=== PATIENT | female | born 1975 | race Caucasian/White ===

== ENCOUNTER 2018-11-29 12:06 | Outpatient (CLI) | payer BC ==
--- NOTE | 2018-11-29 13:31 | RAD ---
THREE VIWS LUMBAR SPINE: DATE: 11/29/2018. HISTORY: Dorsalgia. Low back pain with radiation of pain down into both legs on occasion. COMPARISON: None available. FINDINGS: There are 5 [id number] lumbar-type vertebral bodies. The vertebral body heights are within norm al limits. There is narrowing of the L5-S1 intervertebral disk space. No fracture or subluxation is seen involving the lumbar spine. There is a small to moderate amount of retained fecal material seen throughout the colon. Radiopaque sutures overlie the right lower quadrant. IMPRESSION: 1. Mild degenerative changes at the lumbosacral junction. 2. No fracture or subluxation involving the lumbar spine. 3. Evidence of constipation. POS: KELI
== END 2018-11-29 12:07 | disposition home or self-care (01) ==
LOC: BICRAD 12:06
PROVIDERS: ATTEND Internal Medicine Rheumatology
DX: M54.89 Other dorsalgia (principal); M47.817 Spondylosis without myelopathy or radiculopathy, lumbosacral region; K59.00 Constipation, unspecified
CPT/HCPCS: 72100

== ENCOUNTER 2019-02-06 15:33 | Outpatient (CLI) | payer BC ==
--- NOTE | 2019-02-06 15:51 | RAD ---
Chest 2 views HISTORY: Arthritis. Chest pain. FINDINGS: No comparison. Cardiac silhouette and pulmonary vasculature are unremarkable. Mediastinum i s midline. No confluent airspace consolidation, pneumothorax, or pleural fluid are apparent. IMPRESSION: No active cardiopulmonary abnormalities are demonstrated.
== END 2019-02-06 15:34 | disposition home or self-care (01) ==
LOC: BICRAD 15:33
PROVIDERS: ATTEND Internal Medicine Rheumatology
DX: M45.0 Ankylosing spondylitis of multiple sites in spine (principal)
CPT/HCPCS: 71046

== ENCOUNTER 2021-02-20 07:57 | Outpatient (CLI) | payer BC ==
[2021-02-20] MEDS ORDERED: Iopamidol-370 76% 500 ML 1 ML ONE (12:32)
== END 2021-02-20 07:58 | disposition home or self-care (01) ==
LOC: BICCT 07:57
PROVIDERS: ATTEND Internal Medicine Rheumatology
DX: R10.2 Pelvic and perineal pain (principal); K76.0 Fatty (change of) liver, not elsewhere classified; K44.9 Diaphragmatic hernia without obstruction or gangrene
CPT/HCPCS: 74177; Q9967

== ENCOUNTER 2021-03-04 07:54 | Outpatient (CLI) | payer BC | END 2021-03-04 07:55 | disposition home or self-care (01) | LOC: BICMAMMO 07:54 | PROVIDERS: ATTEND Obstetrics & Gynecology | DX: Z12.31 Encounter for screening mammogram for malignant neoplasm of breast (principal); Z80.3 Family history of malignant neoplasm of breast | CPT/HCPCS: 77063; 77067 ==

== ENCOUNTER 2021-06-30 11:34 | Emergency (ER) | payer BC ==
[2021-06-30] MEDS ORDERED: Magnesium 2 GM/50 ML BAG (IN WATER) ONE (14:54)
[2021-06-30] MEDS ORDERED: Metoclopramide HCl 10 MG/2 ML VIAL ONE (14:54)
[2021-06-30] MEDS ORDERED: diphenhydrAMINE 50 MG/ML VIAL ONE (14:54)
[2021-06-30] MEDS ORDERED: Ondansetron PF 4 MG/2 ML Vial ONE (15:14)
[2021-06-30] MEDS ORDERED: Acetaminophen 500 MG TAB ONE ×2 (16:47→16:57)
[2021-06-30] MEDS ORDERED: Ketorolac Tromethamine 30 MG/ML VIAL ONE (16:48)
[2021-06-30] MEDS ORDERED: methylPREDNISolone Sod Succ/PF 125 MG/2 ML VIAL ONE (16:48)
== END 2021-06-30 17:24 | disposition home or self-care (01) ==
LOC: ERS 11:34
DX: G43.909 Migraine, unspecified, not intractable, without status migrainosus (principal); F41.9 Anxiety disorder, unspecified; Z79.899 Other long term (current) drug therapy
CPT/HCPCS: 96365; 96368; 96375; J1200; J1885; J2405; J2765; J2930; J3475

== ENCOUNTER 2021-07-17 10:30 | Outpatient (CLI) | payer BC ==
[~2021-07-17 10:30] MED LIST: Magnevist 469MG/ML 20 ML VIAL ONE
== END 2021-07-17 10:31 | disposition home or self-care (01) ==
LOC: BICMRI 10:30
PROVIDERS: ATTEND Nurse Practitioner Acute Care
DX: G43.119 Migraine with aura, intractable, without status migrainosus (principal); I67.7 Cerebral arteritis, not elsewhere classified; G37.9 Demyelinating disease of central nervous system, unspecified
CPT/HCPCS: 70553; A9579

== ENCOUNTER 2022-12-07 15:15 | Outpatient (CLI) | payer BC | END 2022-12-07 15:16 | disposition home or self-care (01) | LOC: SCSMRI 15:15 | PROVIDERS: ATTEND Specialist | DX: M51.17 Intervertebral disc disorders with radiculopathy, lumbosacral region (principal); M51.16 Intervertebral disc disorders with radiculopathy, lumbar region; M48.061 Spinal stenosis, lumbar region without neurogenic claudication; M48.07 Spinal stenosis, lumbosacral region; M47.26 Other spondylosis with radiculopathy, lumbar region; M47.817 Spondylosis without myelopathy or radiculopathy, lumbosacral region; K60.2 Anal fissure, unspecified | CPT/HCPCS: 72148 ==

== ENCOUNTER 2024-03-23 08:12 | Outpatient (CLI) | payer BC | END 2024-03-23 08:13 | disposition home or self-care (01) | LOC: NM 08:12 | PROVIDERS: ATTEND Internal Medicine Rheumatology | DX: M81.0 Age-related osteoporosis without current pathological fracture (principal) | CPT/HCPCS: 78306; A9503 ==

== ENCOUNTER 2025-07-02 09:55 | Outpatient (CLI) | payer BC | END 2025-07-02 09:56 | disposition home or self-care (01) | LOC: SCSMRI 09:55 | PROVIDERS: ATTEND Specialist | DX: M54.16 Radiculopathy, lumbar region (principal); M87.9 Osteonecrosis, unspecified; M48.061 Spinal stenosis, lumbar region without neurogenic claudication; M48.07 Spinal stenosis, lumbosacral region | CPT/HCPCS: 72148 ==